=== PATIENT | female | born 1940 | race Caucasian/White ===

== ENCOUNTER → 2017-07-23 | Day surgery (SDC) | payer MEDICARE, OTHER ==
[~2017-07-23] MED LIST: Lactated Ringers 1,000 ML IV SCH; Propofol 200 MG/20 ML SDV IV ONE
[2017-07-23 10:32] VITALS: BP 140/84
--- NOTE | 2017-07-23 11:05 | OR ---
DATE OF OPERATION: 07/23/2017 PREOPERATIVE DIAGNOSIS: CONSTIPATION. POSTOPERATIVE DIAGNOSIS: CONSTIPATION. SURGEON: Joce Campbell MD PROCEDURE: FULL-LENGTH COLONOSCOPY. ANESTHESIA: CAKE MAKER due to morbid obesity. COMPLICATIONS: None. SPECIMEN: None. FINDINGS: 1. Full-length colonoscopy. 2. Moderate sigmoid diverticulosis. RECOMMENDATIONS: Routine colonoscopy on a p.r.n. basis only. INDICATIONS: The patient was in for a routine physical. She admits to having some constipation and it has been almost 10 years since her last colonoscopy. We recommended a procedure. DESCRIPTION OF PROCEDURE: The patient was prepped and draped, placed in the left lateral decubitus position. A lubricated Olympus colonoscope was inserted and easily advanced to the cecum. Direct visualization of the ileocecal valve and appendiceal orifice was accomplished. The bowel prep was adequate. Upon withdrawal of the scope, throughout the entire length of the colon, I could find no signs of any polyps, mass, ulceration, or bleeding sites. No vascular abnormalities or signs of colitis. There were no obstructing areas. There were scattered diverticula in the sigmoid area, [id number] in severity without any inflammatory change. The rectal vault was unremarkable. Retroflexion of scope in the rectum showed no anal lesions. Air was then suctioned. The scope was removed without complication. ESTER/BELLA /[id number]
== END ==
LOC: CC.SDS 08:07
PROVIDERS: ATTEND Family Medicine
DX: K57.30 Diverticulosis of large intestine without perforation or abscess without bleeding (principal); J45.909 Unspecified asthma, uncomplicated; E78.5 Hyperlipidemia, unspecified; E87.6 Hypokalemia; Z88.8 Allergy status to other drugs, medicaments and biological substances; Z79.899 Other long term (current) drug therapy
CPT/HCPCS: 45378; J2704; J7120; 00810

== ENCOUNTER 2020-06-18 15:37 | Observation (INO) | payer MEDICARE, OTHER ==
[2020-06-18] MEDS ORDERED: Pantoprazole 40 MG Vial IVPUSH ONE (16:39)
[2020-06-18] MEDS ORDERED: Acetaminophen 325 MG Tab PO PRN (16:39)
[2020-06-18] MEDS ORDERED: Sodium Chloride 0.9% 10 ML Syringe FLUSH PRN (16:39)
[2020-06-18] MEDS ORDERED: traMADol 50 MG Tab PO PRN (16:43)
[2020-06-18] MEDS ORDERED: Levofloxacin/Dextrose 5%-Water 500 MG in Premix Bag 1 BAG IV SCH (16:45)
[2020-06-18] MEDS ORDERED: methylPREDNISolone Sodium Succinate 125 MG/2 ML SDV IVPUSH SCH (16:45)
[2020-06-18 17:17] LABS: CHLORIDE,CL 105 mEq/L (98-106); SODIUM,NA 140 mEq/L (136-145)
[2020-06-18] MEDS ORDERED: Enoxaparin 40 MG/0.4 ML Syringe SUBCUT SCH (17:30)
[2020-06-18] MEDS ORDERED: Latanoprost 0.005% Ophth Soln 2.5 ML Bottle EYEBOTH SCH (20:00)
[2020-06-18] MEDS ORDERED: NORTRIPTYLINE HCL 25 MG PO SCH (20:00)
[2020-06-18] MEDS ORDERED: PRAMIPEXOLE 0.25 MG PO SCH (20:00)
[2020-06-18] MEDS ORDERED: Simvastatin 40 MG Tab PO SCH (20:00)
[2020-06-18] MEDS: Albuterol/Ipratropium 3.0-0.5 MG/3 ML Neb Soln NEB SCH (21:11)
[2020-06-18] MEDS ORDERED: Levothyroxine 50 MCG Tab PO SCH (21:30)
[2020-06-18] MEDS ORDERED: Levothyroxine 112 MCG Tab PO SCH (21:30)
[2020-06-19] MEDS ORDERED: Levothyroxine 112 MCG Tab PO SCH (07:00)
[2020-06-19] MEDS ORDERED: Levothyroxine 50 MCG Tab PO SCH (07:00)
[2020-06-19 07:27] VITALS: BP 164/91; PULSE 76
[2020-06-19] MEDS: Albuterol/Ipratropium 3.0-0.5 MG/3 ML Neb Soln NEB SCH (07:28)
[2020-06-19] MEDS ORDERED: methylPREDNISolone Sodium Succinate 125 MG/2 ML SDV IVPUSH SCH (08:00)
[2020-06-19] MEDS ORDERED: THEOPHYLLINE 200 MG PO SCH (08:00)
--- NOTE | 2020-06-19 13:01 | PCM.DCSUM1 ---
Discharge Summary - Hospital Course Free Text/Narrative:: Patient presented to clinic to see Dr. Campbell for increasing shortness of breath/dyspnea with exertion. Has noted exercise intolerance. Increased cough. No fevers. Has been more tired. Lung sounds were noted to be tight with expiratory wheezing throughout. Had noted increased weakness. Was also complaining of bilateral knee pain. Was given injections in knees in clinic. Admitted for COPD exacerbation, rule out pneumonia. Diagnosis: Stroke: No Modified Chichester Scale: No Symptoms at All Modified Chichester Scale Score: 0 - Discharge Data Discharge Date: 06/19/20 Discharge Disposition: Home, Self-Care 01 Condition: Good - Referral to Home Health Primary Care Physician: Joce Campbell MD - Discharge Diagnosis/Problem(s) (1) COPD exacerbation SNOMED Code(s): 130852468 ICD Code: J44.1 - CHRONIC OBSTRUCTIVE PULMONARY DISEASE W (ACUTE) EXACERBATION Status: Acute - Patient Summary/Data Complications: none Hospital Course: Patient is doing well this am. States "chest feels better this am". Has not required oxygen. Labs were all stable. Chest xray clear. Ambulating well. Appetite is good. Was given a dose of Levaquin and steroids. On DuoNebs which she does feel has helped her. Has had issues with Symbicort and the cost in the past. Discussed use of those and Budesonide nebs in place of that and she is agreeable. Will discharge her home on those meds, follow up with Dr. Campbell in one week. - Patient Instructions Diet: Usual Diet as Tolerated Activity: As Tolerated - Discharge Plan *PRESCRIPTION DRUG MONITORING PROGRAM REVIEWED*: No *COPY OF PRESCRIPTION DRUG MONITORING REPORT IN PATIENT LISA: No Prescriptions/Med Rec: Albuterol/Ipratropium [DuoNeb 3.0-0.5 MG/3 ML] 3 ml NEB QIDRT #1 box Budesonide [Pulmicort] 1 ampule INH BID #1 box Home Medications: Home Meds Latanoprost 1 drop EYEBOTH BEDTIME 05/13/16 [History] Meloxicam 15 mg PO DAILY 05/13/16 [History] Nortriptyline HCl 25 mg PO BEDTIME 05/13/16 [History] Pramipexole Di-HCl [Mirapex] 0.25 mg PO BEDTIME 05/13/16 [History] Simvastatin 40 mg PO BEDTIME 05/13/16 [History] Theophylline [Theophylline Anhydrous] 200 mg PO DAILY 05/13/16 [History] Levothyroxine 137 mcg PO 0700 07/22/17 [History] traMADol HCl [Tramadol HCl] 50 mg PO Q4H PRN 07/22/17 [History] Albuterol/Ipratropium [DuoNeb 3.0-0.5 MG/3 ML] 3 ml NEB QIDRT #1 box 06/19/20 [Rx] Budesonide [Pulmicort] 1 ampule INH BID #1 box 06/19/20 [Rx] Referrals: Joce Campbell MD [Primary Care Provider] - (Follow up with Dr. Campbell in one week) - Discharge Summary/Plan Comment DC Time >30 min.: No - General Info Date of Service: 06/20/20 Admission Dx/Problem (Free Text: COPD Exacerbation Functional Status: Reports: Pain Controlled, Tolerating Diet, Ambulating - Review of Systems General: Reports: Malaise HEENT: Reports: Rhinitis Pulmonary: Reports: Shortness of Breath, Cough. Denies: Wheezing Cardiovascular: Reports: Edema. Denies: Chest Pain, Lightheadedness Gastrointestinal: Denies: Abdominal Pain, Nausea, Vomiting Genitourinary: Reports: No Symptoms Musculoskeletal: Reports: Joint Pain Skin: Reports: No Symptoms Neurological: Reports: Weakness - Patient Data Vitals - Most Recent: Last Vital Signs Temp 97.8 F 06/19/20 07:26 Pulse 76 06/19/20 07:26 Resp 18 06/19/20 07:26 BP 164/91 H 06/19/20 07:26 Pulse Ox 94 L 06/19/20 07:26 Weight - Most Recent: 209 lb 12.8 oz Lab Results - Last 24 hrs: Laboratory Results - last 24 hr 06/18/20 06/18/20 06/18/20 Range/Units 16:39 16:50 16:50 WBC 10.4 H (5.0-10.0) 10^3/uL RBC 4.58 (4.00-5.50) 10^6/uL Hgb 13.8 (12.0-16.0) g/dL Hct 40.7 (37.0-47.0) % MCV 88.9 (82.0-94.0) fL MCH 30.1 (27.0-32.0) pg MCHC 33.9 (33.0-38.0) g/dL RDW Coeff of Giorgio 14.3 (11.0-15.0) % Plt Count 215 (150-400) 10^3/uL Neut % (Auto) 78.0 (35-85) % Lymph % (Auto) 11.6 (10-55) % Gates % (Auto) 8.7 (0-16) % Eos % (Auto) 1.6 (0-5) % Baso % (Auto) 0.1 (0-3) % Neut # (Auto) 8.13 H (1.80-7.00) 10^3/uL Lymph # (Auto) 1.21 (1.00-4.80) 10^3/uL Gates # (Auto) 0.91 H (0.00-0.80) 10^3/uL Eos # (Auto) 0.17 (0.00-0.45) 10^3/uL Baso # (Auto) 0.01 10^3/uL Sodium 140 (136-145) mEq/L Potassium 3.8 (3.5-5.0) mEq/L Chloride 105 (98-106) mEq/L Carbon Dioxide 29 (21-32) mmol/L BUN 19 H (7-18) mg/dL Creatinine 1.1 H (0.6-1.0) mg/dL Est Cr Clr Drug Dosing 35.81 mL/min Estimated GFR (MDRD) 48 L (>=60) mL/min Glucose 95 (75-99) mg/dL Calcium 8.6 (8.4-10.1) mg/dL Troponin I < 0.017 (0.00-0.06) ng/mL C-Reactive Protein 1.3 H (0.2-0.8) mg/dL NT-Pro-B Natriuret Pep 182 (0-1000) pg/mL Urine Color Yellow (YELLOW) Urine Appearance Slightly cloudy (CLEAR) Urine pH 5.0 (4.5-8.0) Ur Specific [place] >= 1.030 H (1.003-1.020) Urine Protein Negative (NEGATIVE) mg/dL Urine Glucose (UA) Negative (NEGATIVE) mg/dL Urine Ketones Trace H (NEGATIVE) mg/dL Urine Occult Blood Small H (NEGATIVE) Urine Nitrite Negative (NEGATIVE) Urine Bilirubin Small H (NEGATIVE) Urine Urobilinogen 0.2 (0.2-1.0) EU/dL Ur Leukocyte Esterase Negative (NEGATIVE) Urine RBC 0-5 (0-5) /HPF Urine WBC Not seen (0-5) /HPF Ur Epithelial Cells Occasional H (NOT SEEN) /HPF Amorphous Sediment Many H (NOT SEEN) /HPF Med Orders - Current: Current Medications Discontinued Medications Acetaminophen (Tylenol) 650 mg PO Q4H PRN PRN Reason: Pain (Mild 1-3)/fever Albuterol/Ipratropium (Duoneb 3.0-0.5 Mg/3 Ml) 3 ml NEB QIDRT [facility] Last Admin: 06/19/20 07:28 Dose: 3 ml Documented by: Enoxaparin Sodium (Lovenox) 40 mg SUBCUT Q24H [facility] Last Admin: 06/18/20 17:43 Dose: 40 mg Documented by: Levofloxacin/Dextrose 500 mg/ (Premix) 100 mls @ 100 mls/hr IV Q24H [facility] Last Admin: 06/18/20 17:45 Dose: 100 mls/hr Documented by: Levothyroxine Sodium (Levothyroxine) 112 mcg PO BEDTIME [facility] Last Admin: 06/18/20 23:33 Dose: Not Given Documented by: Levothyroxine Sodium (Synthroid) 25 mcg PO BEDTIME [facility] Last Admin: 06/18/20 23:34 Dose: Not Given Documented by: Levothyroxine Sodium (Levothyroxine) 112 mcg PO ACBREAKFAST [facility] Last Admin: 06/19/20 06:37 Dose: 112 mcg Documented by: Levothyroxine Sodium (Synthroid) 25 mcg PO ACBREAKFAST [facility] Last Admin: 06/19/20 06:37 Dose: 25 mcg Documented by: Methylprednisolone Sodium Succinate (Solu-Medrol) 62.5 mg IVPUSH Q12H [facility] Last Admin: 06/18/20 17:43 Dose: 62.5 mg Documented by: Methylprednisolone Sodium Succinate (Solu-Medrol) 62.5 mg IVPUSH Q12H [facility] Last Admin: 06/19/20 07:27 Dose: 62.5 mg Documented by: Non-Formulary Medication (Nortriptyline Hcl [Nortriptyline Hcl]) 25 mg PO BEDTIME [facility] Non-Formulary Medication (Pramipexole) 0.25 mg PO BEDTIME [facility] Non-Formulary Medication (Theophylline [Theophylline Anhydrous]) 200 mg PO DAILY [facility] Pantoprazole Sodium (Protonix Iv) 40 mg IVPUSH ONETIME ONE Stop: 06/18/20 16:40 Last Admin: 06/18/20 17:44 Dose: 40 mg Documented by: Simvastatin (Zocor) 40 mg PO BEDTIME [facility] Sodium Chloride (Saline Flush) 10 ml FLUSH ASDIRECTED PRN PRN Reason: Keep Vein Open Tramadol HCl (Ultram) 50 mg PO Q4H PRN PRN Reason: Pain Last Admin: 06/18/20 21:42 Dose: 50 mg Documented by: - Exam General: Reports: Alert, Oriented HEENT: Reports: Mucous Membr. Moist/[place] Neck: Reports: Supple Lungs: Reports: Decreased Breath Sounds Cardiovascular: Reports: Regular Rate, Regular Rhythm GI/Abdominal Exam: Normal Bowel Sounds, Soft, Non-Tender Extremities: Normal Inspection, No Pedal Edema Skin: Reports: Warm, Dry Neurological: Reports: No New Focal Deficit
== END 2020-06-19 11:11 | disposition home or self-care (01) ==
LOC: UNDOADMOB 15:37 → CC.MS 15:37
PROVIDERS: ADMIT Family Medicine; ATTEND Family Medicine
DX: J44.1 Chronic obstructive pulmonary disease with (acute) exacerbation (principal); M17.0 Bilateral primary osteoarthritis of knee; Z87.891 Personal history of nicotine dependence; E78.5 Hyperlipidemia, unspecified; E03.9 Hypothyroidism, unspecified; Z88.1 Allergy status to other antibiotic agents; Z88.8 Allergy status to other drugs, medicaments and biological substances; Z88.5 Allergy status to narcotic agent; Z79.899 Other long term (current) drug therapy
CPT/HCPCS: 36415; 71046; 80048; 81001; 83880; 84484; 85025; 86140; 93005; 93010; 94640; 96365; 96372; 96375; 96376; 99217; 99220; A9270-GY; C9113; G0378; J1650; J1956; J2930; J7620-GY; U0002

== ENCOUNTER → 2020-09-09 | Day surgery (SDC) | payer MEDICARE, OTHER ==
[~2020-09-09] MED LIST changes: -Lactated Ringers 1,000 ML IV SCH; +Meperidine 50 MG/ML Vial ONE; +Midazolam 1 MG/ML 2 ML SDV ONE; -Propofol 200 MG/20 ML SDV IV ONE
[2020-09-09] MEDS: Lactated Ringers 1,000 ML ONE (08:41)
[2020-09-09] MEDS: Meperidine PF 25 MG/ML SDV IVPUSH ONE (09:00)
[2020-09-09] MEDS: Midazolam 1 MG/ML 2 ML SDV IV ONE (09:00)
--- NOTE | 2020-09-09 10:16 | OR ---
DATE OF OPERATION: 09/09/2020 PREOPERATIVE DIAGNOSIS: PERSISTENT DIARRHEA. POSTOPERATIVE DIAGNOSIS: PERSISTENT DIARRHEA. SURGEON: Joce Campbell MD PROCEDURE: FULL-LENGTH COLONOSCOPY WITH RANDOM COLON BIOPSIES X6. ANESTHESIA: Conscious sedation with continuous O2 saturation monitoring and nurse assist. COMPLICATIONS: None. SPECIMEN: Six random colon biopsies from terminal ileum to rectum. FINDINGS: 1. Full-length diagnostic colonoscopy. 2. Mild sigmoid diverticulosis. 3. No gross pathology. RECOMMENDATIONS: The patient will follow up for biopsy reports in the next week or 2. INDICATIONS: Lisette has been having ongoing issues with persistent diarrhea. She has had negative stool studies and CT scan of the abdomen and pelvis. We elected to proceed with diagnostic colonoscopy. DESCRIPTION OF PROCEDURE: The patient was prepped and draped, placed in the left lateral decubitus position. A lubricated Olympus colonoscope was inserted and with ease advanced to the cecum. We were able to intubate into the terminal ileum. The bowel prep was excellent. Upon withdrawal, we did do random biopsies throughout the whole length of the colon including the terminal ileum all the way to the rectum. These included the ascending, transverse, sigmoid, and rectosigmoid regions. Throughout the entire length of the colon, I could find no polyps, masses, ulceration, or bleeding sites. There were no signs of active colitis. A few scattered diverticula in the sigmoid, but very mild. The rectal vault was benign, and retroflexion showed no perianal lesions. Air was suctioned and the scope was removed without complication. ESTER/BELLA /[id number]
[2020-09-09 10:30] VITALS: BP 132/70; PULSE 82
== END ==
LOC: CC.SDS 08:12
PROVIDERS: ATTEND Family Medicine
DX: K52.832 Lymphocytic colitis (principal); K57.30 Diverticulosis of large intestine without perforation or abscess without bleeding; J45.909 Unspecified asthma, uncomplicated; G89.29 Other chronic pain; E78.5 Hyperlipidemia, unspecified; E03.9 Hypothyroidism, unspecified; E87.6 Hypokalemia; Z88.8 Allergy status to other drugs, medicaments and biological substances; Z88.5 Allergy status to narcotic agent; Z79.899 Other long term (current) drug therapy; Z88.1 Allergy status to other antibiotic agents; Z79.890 Hormone replacement therapy
CPT/HCPCS: 88305; J2175; J2250; J7120